=== PATIENT | male | born 1970 | race Caucasian/White ===

== ENCOUNTER 2018-09-14 06:28 | Day surgery (SDC) | payer BC ==
[~2018-09-14 06:28] MED LIST: Lactated Ringers 1,000 ML IV SCH; ceFAZolin 2 GM in Premix Bag 1 BAG IV SCH
[2018-09-14] MEDS ORDERED: Bupivacaine 0.5% 30 ML SDV ONE (07:22)
[2018-09-14] MEDS ORDERED: ceFAZolin 1 GM Vial ONE (07:22)
--- NOTE | 2018-09-14 07:27 | PCM.PREANE ---
Preanesthetic Assessment - Anesthesia/Transfusion/Family Hx Anesthesia History: Prior Anesthesia Without Reaction Transfusion History: No Prior Transfusion(s) - Review of Systems General: No Symptoms Pulmonary: No Symptoms Cardiovascular: No Symptoms Gastrointestinal: No Symptoms Neurological: No Symptoms Other: Reports: None - Physical Assessment Height: 6 ft 3 in Weight: 103.873 kg ASA Class: 2 Mental Status: Alert & Oriented x3 Airway Class: Mallampati = 2 Dentition: Reports: Normal Dentition Thyro-Mental Finger Breadths: 3 Mouth Opening Finger Breadths: 3 ROM/Head Extension: Full Lungs: Clear to Auscultation, Normal Respiratory Effort Cardiovascular: Regular Rate, Regular Rhythm - Allergies Allergies/Adverse Reactions: Allergies Allergy/AdvReac Type Severity Reaction Status Date / Time No Known Allergies Allergy Verified 09/12/18 12:08 - Acknowledgements Anesthesia Type Planned: General Anesthesia Pt an Appropriate Candidate for the Planned Anesthesia: Yes Alternatives and Risks of Anesthesia Discussed w Pt/Guardian: Yes Pt/Guardian Understands and Agrees with Anesthesia Plan: Yes PreAnesthesia Questionnaire HEENT History: Reports: Other (See Below) Other HEENT History: wears glasses/contacts Cardiovascular History: Reports: Hypertension (Takes Rx as prescribed) Respiratory History: Reports: None Gastrointestinal History: Reports: None Genitourinary History: Reports: None Musculoskeletal History: Reports: Fracture, Other (See Below) Other Musculoskeletal History: frequent back pain- not chronic, hx of fx foot Neurological History: Reports: Other (See Below) Other Neuro History: has a "pinched nerve" in his back- causes "tingling" in his legs, no pain Psychiatric History: Reports: None Endocrine/Metabolic History: Reports: Hypothyroidism Hematologic History: Reports: None Immunologic History: Reports: None Oncologic (Cancer) History: Reports: None Dermatologic History: Reports: Eczema - Infectious Disease History Infectious Disease History: Reports: None - Past Surgical History HEENT Surgical History: Reports: Tonsillectomy GI Surgical History: Reports: Appendectomy, Hernia, Inguinal - SUBSTANCE USE Smoking Status *Q: Current Every Day Smoker Tobacco Use Within Last Twelve Months: Smokeless Tobacco (1 can per day) Recreational Drug Use History: No - HOME MEDS Home Medications: Home Meds Aspirin [Adult Low Dose Aspirin EC] 81 mg PO BEDTIME 09/12/18 [History] Levothyroxine Sodium 88 mcg PO QAM 09/12/18 [History] Lisinopril 5 mg PO BEDTIME 09/12/18 [History] - CURRENT (IN HOUSE) MEDS Current Meds: Current Medications Cefazolin Sodium/Dextrose 2 gm (/ Premix) 50 mls @ 100 mls/hr IV ONETIME [facility] Lactated Ringer's (Ringers, Lactated) 1,000 mls @ 125 mls/hr IV ASDIRECTED [facility]IL[facility] Discontinued Medications Bupivacaine HCl (Marcaine 0.5%) Confirm Administered Dose 30 ml .ROUTE .STK-MED ONE Stop: 09/14/18 07:23 Cefazolin Sodium (Ancef) Confirm Administered Dose 1 gm .ROUTE .STK-MED ONE Stop: 09/14/18 07:23 Acetaminophen (Ofirmev) Confirm Administered Dose 100 mls @ as directed IV .STK- MED ONE Stop: 09/14/18 07:23
[2018-09-14] MEDS ORDERED: Propofol 200 MG/20 ML SDV ONE (07:32)
[2018-09-14] MEDS ORDERED: Midazolam 1 MG/ML 2 ML SDV ONE (07:33)
[2018-09-14] MEDS ORDERED: fentaNYL 100 MCG/2 ML SDV ONE (07:33)
[2018-09-14] MEDS ORDERED: Ketorolac 30 MG/ML SDV ONE (07:34)
[2018-09-14] MEDS ORDERED: Ondansetron 4 MG/2 ML SDV ONE (07:34)
[2018-09-14] MEDS ORDERED: Lidocaine 2% 5 ML SDV ONE (07:34)
[2018-09-14] MEDS ORDERED: Dexamethasone 4 MG/ML 5 ML MDV ONE (07:34)
[2018-09-14] MEDS ORDERED: ceFAZolin/Dextrose,Iso-Osmotic 2 GM/50 ML Duplex Bag IV ONE (07:42)
[2018-09-14] MEDS ORDERED: Glycopyrrolate 0.2 MG/ML SDV ONE ×2 (08:30→08:34)
[2018-09-14] MEDS ORDERED: HYDROmorphone 2 MG/ML SDV IVPUSH PRN (08:41)
[2018-09-14] MEDS ORDERED: fentaNYL 100 MCG/2 ML SDV IVPUSH PRN (08:41)
[2018-09-14] MEDS ORDERED: Ondansetron 4 MG/2 ML SDV IVPUSH PRN ×2 (08:42→09:44)
[2018-09-14] MEDS ORDERED: ePHEDrine 50 MG/ML SDV ONE (08:49)
[2018-09-14] MEDS ORDERED: Acetaminophen/HYDROcodone 325-5 MG Tab PO PRN (09:44)
[2018-09-14] MEDS ORDERED: Morphine 10 MG/ML Syringe IVPUSH PRN (09:44)
[2018-09-14] MEDS ORDERED: Lactated Ringers 1,000 ML IV SCH (09:45)
--- NOTE | 2018-09-14 09:48 | PCM.OPNOTE ---
- General Post-Op/Procedure Note Date of Surgery/Procedure: 09/14/18 Operative Procedure(s): Repair right inguinal hernia with extra large Bard PerFix plug and patch Pre Op Diagnosis: Reducible right inguinal hernia Post-Op Diagnosis: Reducible indirect right inguinal hernia Anesthesia Technique: General LMA Primary Surgeon: Marquez Meyer [employer] Driver: Elvis Martinez Fluid Replacement, Intraop: 1,100 EBL in mLs: 20 Condition: Good Free Text/Narrative:: DICTATION [id number] CPT CODE 43403
--- NOTE | 2018-09-14 10:05 | PCM.POSTAN ---
POST ANESTHESIA ASSESSMENT - MENTAL STATUS Mental Status: Alert, Oriented - RESPIRATORY Respiratory Status: Respiratory Rate WNL, Airway Patent, O2 Saturation Stable - CARDIOVASCULAR CV Status: Pulse Rate WNL, Blood Pressure Stable - GASTROINTESTINAL GI Status: No Symptoms - PAIN Pain Score: 4 - POST OP HYDRATION Hydration Status: Adequate & Stable
[2018-09-14] MEDS ORDERED: oxyCODONE 5 MG Tab PO PRN (10:37)
--- NOTE | 2018-09-14 10:45 | OR ---
SURGEON: Marquez Meyer M.D. DATE OF PROCEDURE: 09/14/2018 OPERATION PERFORMED: Repair right inguinal hernia with extra-large Bard PerFix plug and patch. MANAGER WEB APPLICATION: TENISHA Osullivan student. ANESTHESIA: General/LMA. ASA CLASSIFICATION: 2. PREOPERATIVE DIAGNOSIS: Reducible right inguinal hernia. POSTOPERATIVE DIAGNOSIS: Reducible right inguinal hernia. ESTIMATED BLOOD LOSS: 20 mL. INTRAOPERATIVE FLUID REPLACEMENT: 1100 mL of crystalloid. DESCRIPTION OF PROCEDURE: The patient was taken to the operating room and placed on the operating table in the supine position. Time-out was called for appropriate identification of the patient and procedure. Thigh-high TEDs and sequential compression boots were placed. The surgical site had been marked prior to the patient entering the operating room. Following satisfactory attainment of general anesthesia with placement of an LMA, the abdomen was prepped with DuraPrep solution. Sterile drapes were applied. The skin incision was marked out in the right inguinal crease. The incision was anesthetized with 10 mL of 0.5% Marcaine solution. The skin incision was made and deepened through the subcutaneous tissue obtaining hemostasis with the use of electrocautery. Dissection was carried down to the external oblique fascia. This was opened in the direction of its fibers all the way to the inguinal ring. The cord was then mobilized and encircled with a [place] drain. There was a large indirect defect. The sac was dissected away from the cord with care taken not to injure the cord nor its structures. Once the hernia sac was reduced and incised, an extra-large Bard PerFix plug and patch was brought to the operating table. This was soaked in 1% Ancef solution. The plug was placed into the internal ring and secured with a 0 Ethibond suture. The patch was placed over the floor to reinforce this and secured medially and inferiorly to Ben's ligament, transitioning to the inguinal ligament and superiorly to the transversalis fascia. The wings of the patch were brought around the cord and secured laterally again with a 0 Ethibond suture. All sutures were tied down. The patient was given a Valsalva maneuver to 50 cm of water and the repair was solid. Wound was inspected for hemostasis. There was a little bit of bleeding medially. This was controlled with direct pressure for full 2 minutes and resolved the issue. The incision was then irrigated with 1% Ancef solution. The cord was returned to its anatomic location. The external oblique fascia was reapproximated with 3-0 Vicryl. Kike's fascia was closed with 3-0 Vicryl. The skin was closed with subcuticular 4-0 Monocryl, reinforced with half-inch Steri-Strips. Sterile Tegaderm pad was placed as a dressing. Sponge, needle, and instrument counts were all correct. Following emergence from anesthesia and extubation, the patient was taken to recovery room in stable condition. DIANA CATES /[id number]
--- NOTE | 2018-09-14 10:58 | PCM48HPAN ---
Post Anesthesia Note - EVALUATION WITHIN 48HRS OF ANESTHETIC Vital Signs in Normal Range: Yes Patient Participated in Evaluation: Yes Respiratory Function Stable: Yes Airway Patent: Yes Cardiovascular Function Stable: Yes Hydration Status Stable: Yes Pain Control Satisfactory: Yes Nausea and Vomiting Control Satisfactory: Yes Mental Status Recovered: Yes Resp Rate: 18
== END 2018-09-14 13:15 | disposition home or self-care (01) ==
LOC: MW.SDS 06:28
PROVIDERS: ATTEND Surgery
DX: K40.90 Unilateral inguinal hernia, without obstruction or gangrene, not specified as recurrent (principal); I10 Essential (primary) hypertension; E03.9 Hypothyroidism, unspecified; F17.290 Nicotine dependence, other tobacco product, uncomplicated; G47.33 Obstructive sleep apnea (adult) (pediatric); Z99.89 Dependence on other enabling machines and devices; Z79.899 Other long term (current) drug therapy; Z98.890 Other specified postprocedural states
CPT/HCPCS: 49505; A9270; J0131; J0690; J1100; J1885; J2001; J2250; J2270; J2405; J2704; J3010; J3490; J7120; C1781

== ENCOUNTER 2019-09-19 08:17 | Day surgery (SDC) | payer OTHER ==
[~2019-09-19 08:17] MED LIST changes: +Bupivacaine 0.5% 10 ML SDV ONE; +Lidocaine 1% 20 ML MDV ONE; +ceFAZolin 1 GM Vial ONE; +ceFAZolin 2 GM in Premix Bag 1 BAG IV ONE; -ceFAZolin 2 GM in Premix Bag 1 BAG IV SCH
--- NOTE | 2019-09-19 09:06 | PCM.PREANE ---
Preanesthetic Assessment - Anesthesia/Transfusion/Family Hx Anesthesia History: Prior Anesthesia Without Reaction Family History of Anesthesia Reaction: No Transfusion History: No Prior Transfusion(s) Intubation History: Unknown - Review of Systems General: No Symptoms Pulmonary: No Symptoms Cardiovascular: No Symptoms Gastrointestinal: No Symptoms Neurological: No Symptoms Other: Reports: None - Physical Assessment NPO Status Date: 09/18/19 NPO Status Time: 23:30 Vital Signs: Last Vital Signs Temp 36.9 C 09/19/19 08:24 Pulse 60 09/19/19 08:24 Resp 18 09/19/19 08:24 BP 149/87 H 09/19/19 08:24 Pulse Ox 97 09/19/19 08:24 Height: 6 ft 3.5 in Weight: 108.862 kg ASA Class: 2 Mental Status: Alert & Oriented x3 Airway Class: Mallampati = 2 Dentition: Reports: Normal Dentition (small chip front upper incisor) Thyro-Mental Finger Breadths: 3 Mouth Opening Finger Breadths: 3 ROM/Head Extension: Full Lungs: Clear to Auscultation, Normal Respiratory Effort Cardiovascular: Regular Rate, Regular Rhythm - Allergies Allergies/Adverse Reactions: Allergies Allergy/AdvReac Type Severity Reaction Status Date / Time No Known Allergies Allergy Verified 09/17/19 08:35 - Blood Blood Available: No - Anesthesia Plan Pre-Op Medication Ordered: None - Acknowledgements Anesthesia Type Planned: General Anesthesia Pt an Appropriate Candidate for the Planned Anesthesia: Yes Alternatives and Risks of Anesthesia Discussed w Pt/Guardian: Yes Pt/Guardian Understands and Agrees with Anesthesia Plan: Yes PreAnesthesia Questionnaire HEENT History: Reports: Other (See Below) Other HEENT History: wears glasses/contacts Cardiovascular History: Reports: Hypertension Respiratory History: Reports: Sleep Apnea Other Respiratory History: uses CPAP Gastrointestinal History: Reports: None Genitourinary History: Reports: None Musculoskeletal History: Reports: Fracture (left 5th metetarsal bone at present time), Other (See Below) Other Musculoskeletal History: hx fx foot Neurological History: Reports: None Psychiatric History: Reports: None Endocrine/Metabolic History: Reports: Hypothyroidism Hematologic History: Reports: None Immunologic History: Reports: None Oncologic (Cancer) History: Reports: None Dermatologic History: Reports: None, Eczema - Infectious Disease History Infectious Disease History: Reports: None - Past Surgical History Head Surgeries/Procedures: Reports: None HEENT Surgical History: Reports: Tonsillectomy Cardiovascular Surgical History: Reports: None Respiratory Surgical History: Reports: None GI Surgical History: Reports: Appendectomy, Hernia, Inguinal Other GI Surgeries/Procedures: inguinal hernia repair x2 Male Surgical History: Reports: None Endocrine Surgical History: Reports: None Neurological Surgical History: Reports: None Musculoskeletal Surgical History: Reports: None Oncologic Surgical History: Reports: None Dermatological Surgical History: Reports: None - SUBSTANCE USE Smoking Status *Q: Former Smoker (quit a year ago) Tobacco Use Within Last Twelve Months: No Recreational Drug Use History: No - HOME MEDS Home Medications: Home Meds Aspirin [Adult Low Dose Aspirin EC] 81 mg PO BEDTIME 09/12/18 [History] Levothyroxine Sodium 88 mcg PO QAM 09/12/18 [History] Lisinopril 10 mg PO BEDTIME 09/12/18 [History] Multivitamin [Multivitamins] 1 tab PO DAILY 09/17/19 [History] - CURRENT (IN HOUSE) MEDS Current Meds: Current Medications Lactated Ringer's (Ringers, Lactated) 1,000 mls @ 125 mls/hr IV ASDIRECTED [facility] Last Admin: 09/19/19 08:35 Dose: 125 mls/hr Discontinued Medications Bupivacaine HCl (Sensorcaine-Mpf 0.5%) Confirm Administered Dose 10 ml .ROUTE .STK-MED ONE Stop: 09/19/19 08:01 Cefazolin Sodium (Ancef) Confirm Administered Dose 1 gm .ROUTE .STK-MED ONE Stop: 09/19/19 08:01 Cefazolin Sodium/Dextrose 2 gm (/ Premix) 50 mls @ 100 mls/hr IV ONETIME ONE Stop: 09/19/19 00:10 Lidocaine HCl (Xylocaine 1%) Confirm Administered Dose 20 ml .ROUTE .STK-MED ONE Stop: 09/19/19 08:01
[2019-09-19] MEDS ORDERED: Propofol 200 MG/20 ML SDV ONE (09:29)
[2019-09-19] MEDS ORDERED: Lidocaine 2% 5 ML SDV ONE (09:29)
[2019-09-19] MEDS ORDERED: fentaNYL 100 MCG/2 ML SDV ONE ×2 (09:29→10:26)
[2019-09-19] MEDS ORDERED: Midazolam 1 MG/ML 2 ML SDV ONE (09:29)
[2019-09-19] MEDS ORDERED: ceFAZolin/Dextrose,Iso-Osmotic 2 GM/50 ML Duplex Bag IV ONE (09:54)
[2019-09-19] MEDS ORDERED: Ondansetron 4 MG/2 ML SDV ONE (11:15)
[2019-09-19] MEDS ORDERED: Ketorolac 30 MG/ML SDV ONE (11:16)
[2019-09-19] MEDS ORDERED: hydrALAZINE 20 MG/ML SDV IVPUSH PRN (11:54)
[2019-09-19] MEDS ORDERED: HYDROmorphone 2 MG/ML Syringe IVPUSH PRN (11:56)
[2019-09-19] MEDS: fentaNYL 100 MCG/2 ML SDV IVPUSH PRN ×2 (11:57→12:02)
--- NOTE | 2019-09-19 12:09 | PCM.POSTAN ---
POST ANESTHESIA ASSESSMENT - MENTAL STATUS Mental Status: Alert, Oriented - VITAL SIGNS Vital Signs: Last Vital Signs Temp 36.4 C 09/19/19 11:42 Pulse 63 09/19/19 12:02 Resp 12 09/19/19 12:02 BP 146/91 H 09/19/19 12:02 Pulse Ox 98 09/19/19 12:02 - RESPIRATORY Respiratory Status: Respiratory Rate WNL, Airway Patent, O2 Saturation Stable - CARDIOVASCULAR CV Status: Pulse Rate WNL, Blood Pressure Stable - GASTROINTESTINAL GI Status: No Symptoms - PAIN Pain Score: 4 - POST OP HYDRATION Hydration Status: Adequate & Stable - OBSERVATIONS Free Text/Narrative:: No anesthesia problems
--- NOTE | 2019-09-19 12:18 | PN ---
PREOPERATIVE PROGRESS NOTE DATE OF SURGERY: September 19, 2019. PLANNED PROCEDURE: Open reduction and internal fixation of 5th metatarsal fracture, left foot. MEDICAL HISTORY: No known drug allergies. ACTIVE PROBLEMS: Hypertension, hypothyroidism, inguinal hernia on the right, the metatarsal fracture, rash, and smokeless tobacco use. CURRENT MEDICATIONS: 1. Aspirin 81 mg daily. 2. Levothyroxine 88 mcg daily. 3. Lisinopril 10 mg tablet once daily. LABORATORY DATA: White blood cell 5.23, red blood cell 5.16, hemoglobin 15.7, hematocrit 45.3, platelets 170. INR 1.01. Sodium 139, potassium 4.0, chloride 103, CO2 of 25.2, random glucose 85, BUN 16, creatinine 1.0. EKG showed sinus rhythm with a possible LVH by voltage criteria. Chest x-ray showed nothing acute. The patient was cleared for surgery by Dr. Figueredo with no contraindications to surgery. The patient's questions have been asked and answered completely. Risks and benefits have been discussed with the patient. The patient elects to proceed with surgery today to correct 5th metatarsal fracture, left foot. No guarantees expressed or implied. CIERRA / LOAN /[id number]
--- NOTE | 2019-09-19 12:25 | PCM.OPNOTE ---
- General Post-Op/Procedure Note Date of Surgery/Procedure: 09/19/19 Operative Procedure(s): orif fifth metatarsal fracture left foot Findings: consistent with dx Pre Op Diagnosis: fifth metatarsal fx left foot Post-Op Diagnosis: fifth metatarsal fx left foot Anesthesia Technique: General LMA Primary Surgeon: Adam Calvert Pathology: none EBL in mLs: 5 Complications: none Condition: Good Free Text/Narrative:: Intake & Output 09/18/19 09/19/19 09/19/19 22:59 06:59 14:59 Intake Total 1500 Balance 1500 materials: 4-0 vicryl, 4-0 prolene, 6 x 55 mm Erie Asnis partially threaded solid screw injectables: 10 ml 0.5% marcaine plain tourniquet time: 52 min
--- NOTE | 2019-09-19 12:44 | PCM48HPAN ---
Post Anesthesia Note - EVALUATION WITHIN 48HRS OF ANESTHETIC Vital Signs in Normal Range: Yes Patient Participated in Evaluation: Yes Respiratory Function Stable: Yes Airway Patent: Yes Cardiovascular Function Stable: Yes Hydration Status Stable: Yes Pain Control Satisfactory: Yes Nausea and Vomiting Control Satisfactory: Yes Mental Status Recovered: Yes Vital Signs: Last Vital Signs Temp 36.7 C 09/19/19 12:12 Pulse 53 L 09/19/19 12:33 Resp 16 09/19/19 12:33 BP 141/90 H 09/19/19 12:33 Pulse Ox 95 09/19/19 12:33 - COMMENTS/OBSERVATIONS Free Text/Narrative:: No anesthesia problems.
--- NOTE | 2019-09-19 16:57 | CR ---
Left foot: 5 fluoroscopic spot views were obtained utilizing C-arm device. Comparison: Prior left foot study of 2043. Findings: Study is a procedural exam showing placement of a screw across previous fracture within the base of the 5th metatarsal. Fluoroscopy time given as 97.75 seconds. Impression: 1. Operative study as noted above. Diagnostic code #2 This report was dictated in [place] Standard Time
--- NOTE | 2019-09-19 19:00 | OR ---
SURGEON: Adam Calvert DPM DATE OF PROCEDURE: 09/19/2019 PRIMARY SURGEON: Adam Calvert DPM. PREOPERATIVE DIAGNOSIS: Fracture of 5th metatarsal, left foot. POSTOPERATIVE DIAGNOSIS: Fracture of 5th metatarsal, left foot. PROCEDURE: Open reduction with internal fixation of 5th metatarsal fracture, left foot. FINDINGS: Consistent with diagnosis. ANESTHESIA: General LMA. HEMOSTASIS: Above-ankle pneumatic tourniquet inflated to a pressure of 250 mmHg after an Esmarch bandage exsanguination of the left lower extremity. PATHOLOGY: None. ESTIMATED BLOOD LOSS: 5 mL. COMPLICATIONS: None. MATERIALS: One [place] titanium partially-threaded solid screw measuring 6 mm in diameter x 55 mm in length, 4-0 Vicryl, 4-0 Prolene. INJECTABLES: 10 mL of 0.5% Marcaine plain. CONDITION: The patient tolerated the procedure and the anesthesia well with no complications noted and was transferred from the operating room to the recovery room after having tolerated the procedure and anesthesia with no complications. JUSTIFICATION FOR PROCEDURE: The patient is a 48-year-old male who suffered a proximal 5th metatarsal fracture to the left foot approximately months ago and remained weightbearing until he came for followup appointment after his initial appointment with me and wanted the x-ray to demonstrate that indeed that the fracture had healed, but in fact x-ray clearly revealed that this fracture was not healing as I had advised it was likely with continued weightbearing and without surgery. The patient elected to proceed with surgical correction planned to be done with an intramedullary screw approach if possible. The patient understands risks and benefits of the surgery and all patient questions have been answered. No guarantees expressed or implied. Patient consent was provided in writing and the form was placed in the patient's chart and there was a witness present for consent. PROCEDURE IN DETAIL: The patient was brought to the operating room, placed on the operating table in a supine position, at which time, anesthesia was induced. The patient was kept in supine position initially and then rotated into a lateral decubitus position. Aseptic scrub and drape were performed in the usual aseptic manner. Time-out was performed verifying the left foot was properly marked and draped and consented for and preoperative fluoroscopy verified fracture to the left foot. All present agreed with the time-out and anesthesia confirmed, 2 g of Ancef had been administered. Using preoperative fluoroscopy, incision site was planned with a marking pen. Esmarch bandage exsanguination was performed. Above-ankle pneumatic tourniquet was then inflated after elevating the foot to a pressure of 250 mmHg. Procedure then commenced with a 1 cm linear incision approximately 1 cm proximal to the base of the 5th metatarsal of the left foot. Incision was deepened with care taken to avoid the tendinous and sural nerve structures and blunt dissection was used with a small curved hemostat to reach the base of the 5th metatarsal. K-wire was placed at the base of the 5th metatarsal and advanced using a drill from proximal to distal into the shaft of the 5th metatarsal to optimize centering the K-wire in the shaft on both AP and lateral views, which were taken repeatedly. The Sina wire guide was used, a second K - wire was placed parallel to the first, and the first one was withdrawn as the second one was judged to be in an ideal position. K-wire was advanced to the distal portion of the shaft of the 5th metatarsal of the left foot. The drill was then placed over the K-wire and advanced through the shaft of the 5th metatarsal using a tissue protector. This was then withdrawn and tapping was performed with a 4.0 mm tap followed by countersinking the base with a Sina countersink tool. Using the Sina screw with the guide, it was judged that a 6 mm width screw would be appropriate for this size bone. Measurement guide was also used and a 55 mm length screw was selected. The K-wire was withdrawn. The solid screw was placed and advanced under intraoperative fluoroscopy. Additional tapping with 6 mm tap was not necessary as screw was advancing without excessive resistence. Excellent fixation and positioning of the screw were verified on AP and lateral views. Both preoperative and postoperative x-rays were taken. Site was flushed with saline and closed with 4-0 Vicryl, followed by 4-0 Prolene, Vicryl being used on the subcutaneous level tissue and Prolene on the skin. Betadine-soaked Xeroform gauze was applied over the incision site followed by fluff gauze, Kerlix roll, and a stockinette. Cast padding was then applied over the left lower extremity and an Ortho-Glass 4-inch width posterior splint was applied and was then secured with 3-inch and 4-inch Issa bandage. Prior to application of all dressings, 10 mL of 0.5% Marcaine plain was infiltrated about the surgical site. The patient had a prompt hyperemic response upon deflation of the tourniquet, which was deflated as sutures were being applied to the subcutaneous level at the time of 52 minutes, and there were no complications noted, and the patient was transported from the operating room to the recovery room having tolerated the procedure and the anesthesia well. The patient will be provided with written discharge instructions, and I have also spoken with his and emphasized that strict nonweightbearing is to be maintained at all times, utilizing crutches or knee scooter, both of which the patient has, or wheelchair if necessary, and the patient will be planned for followup on September 29 in my office. The patient has my phone number and is to contact me with any concerns or questions at any time. The patient also has a shower bag, which he will be using to keep the dressings clean and dry and is to maintain the dressings intact and to elevate his left lower extremity when possible. CIERRA / LOAN /[id number]
== END 2019-09-19 12:50 | disposition home or self-care (01) ==
LOC: MW.SDS 08:17
PROVIDERS: ATTEND Podiatrist Foot & Ankle Surgery
DX: S92.352A Displaced fracture of fifth metatarsal bone, left foot, initial encounter for closed fracture (principal); I10 Essential (primary) hypertension; E03.9 Hypothyroidism, unspecified; G47.30 Sleep apnea, unspecified; Z79.82 Long term (current) use of aspirin; Z79.899 Other long term (current) drug therapy; Z99.89 Dependence on other enabling machines and devices; Z87.891 Personal history of nicotine dependence
CPT/HCPCS: 28485; J0690; J1885; J2001; J2250; J2405; J2704; J3010; J3490; J7120